=== PATIENT | male | born 1990 | race Caucasian/White ===

== ENCOUNTER → 2023-01-03 | Outpatient (CLI) | payer BC ==
[2023-01-03 15:52] LABS: Glucose 99 mg/dL (70-110); LDL Cholesterol,Calculated 105.8 mg/dL (0.0-131.0); VLDL Calculation 16.32 mg/dL (5.00-40.00)
== END | disposition home or self-care (01) ==
LOC: LABWHC1 08:11
PROVIDERS: ATTEND Nurse Practitioner Family
DX: Z00.00 Encounter for general adult medical examination without abnormal findings (principal)
CPT/HCPCS: 36415; 80061; 82947

== ENCOUNTER 2023-11-29 09:11 | Day surgery (SDC) | payer BC ==
[2023-11-29] MEDS: LACTATED RINGERS 1,000 ML IV SCH (09:38)
[2023-11-29 10:02] VITALS: TEMP 97
[2023-11-29] MEDS ORDERED: PROPOFOL 10 MG/ML 20 ML VIAL IV ONE (10:30)
[2023-11-29] MEDS ORDERED: LIDOCAINE 1% INJ 10MG/ML (20 ML MDV) ONE (10:30)
--- NOTE | 2023-11-29 10:41 | P.PCN ---
Date of Procedure: 11/29/23 Procedure(s) Performed: BRIEF HISTORY: Patient is a 33-year-old, pleasant, white male scheduled for an upper endoscopy as a part of evaluation of epigastric pain, heartburn, intermittent nausea vomiting for the last 2 years duration.. PROCEDURE PERFORMED: Esophagogastroduodenoscopy with biopsy PREOPERATIVE DIAGNOSIS: Epipain/intermittent nausea vomiting of 2 years duration. IV sedation per anesthesia. PROCEDURE: After informed consent was obtained, the patient was brought into the endoscopy unit. IV sedation was administered by Anesthesia under continuous monitoring. Initially the Olympus GIF-140 video endoscope was inserted into the mouth. Esophagus intubated without any difficulty. It was gradually advanced into the stomach and duodenum and carefully examined. The bulb and the second part of the duodenum appeared normal. The scope at this time was withdrawn to the stomach, adequately insufflated with air, and upon careful examination, mucosa of the antrum, and mild gastritis and biopsies were done from this area. Mucosa of the body, cardia and fundus appeared normal. The scope was then withdrawn into the esophagus. Small hiatal hernia noted. The GE junction was located at 40 cm from the incisors. There were linear erosions with one superficial ulceration at the GE junction consistent with LA grade C reflux esophagitis.. Rest of esophagus appeared normal patient tolerated the procedure well. IMPRESSION: 1. Linear erosions with one superficial ulceration in the distal esophagus consistent with LA grade C reflux esophagitis. 2. Small hiatal hernia 3. Mild antral gastritis. RECOMMENDATIONS: The findings of this examination were discussed with the patient as well as his family. He was advised to follow with the biopsy results. Start on Prilosec 40 mg daily and follow antireflux measures. Follow up in office in 3 months...
[2023-11-29 11:05] VITALS: RESP 16
[2023-11-29 11:36] VITALS: BP 126/82; PULSE 60
== END 2023-11-29 11:15 | disposition home or self-care (01) ==
LOC: ORWHC2ENDO 09:11
PROVIDERS: ATTEND Internal Medicine Gastroenterology
DX: K29.50 Unspecified chronic gastritis without bleeding (principal); K22.10 Ulcer of esophagus without bleeding; K21.00 Gastro-esophageal reflux disease with esophagitis, without bleeding; K44.9 Diaphragmatic hernia without obstruction or gangrene; E66.01 Morbid (severe) obesity due to excess calories; Z79.899 Other long term (current) drug therapy; Z86.59 Personal history of other mental and behavioral disorders; Z68.36 Body mass index [BMI] 36.0-36.9, adult
CPT/HCPCS: 88305; 43239; J2001; J2704